=== PATIENT | male | born 1980 | race Caucasian/White ===

== ENCOUNTER 2020-02-27 01:56 | Emergency (ER) | payer MEDICARE, SELFPAY ==
--- NOTE | 2020-02-27 | CT_ITS ---
EXAMINATION: NONCONTRAST HEAD CT NONCONTRAST MAXILLOFACIAL CT NONCONTRAST CERVICAL SPINE CT INDICATION INFORMATION: Fall hitting head. Facial swelling and pain. COMPARISON: 09/26/2013 TECHNIQUE: Separate noncontrast CT examinations of the head, maxillofacial bones, and cervical spine were performed. Coronal and sagittal images were created for each examination at the technologist workstation. This CT examination was performed using dose optimization techniques as appropriate, variously including the following: *Automated exposure control *Adjustment of mA and/or kV according to patient size (this includes techniques or standardized protocols for targeted exams where dose is matched to indication/reason for exam; i.e. extremities or head) *Use of iterative reconstruction technique DLP: 1396 mGy-cm FINDINGS: Head: There is no evidence of acute intracranial hemorrhage or territorial infarction. No abnormal mass effect or midline shift is seen. Rodriguez to white matter differentiation is well preserved. No extra-axial fluid collections are identified. No hydrocephalus. No significant volume loss. There is no abnormal attenuation within the brain parenchyma. No acute soft tissue abnormality. No calvarial fracture. The mastoid air cells are well aerated. Maxillofacial: There is prominent soft tissue swelling in the left periorbital region and overlying the left mandible. Associated gas in the soft tissues. Multilevel maxillofacial fractures are present. There is a displaced fracture of the left zygomatic arch. There is a comminuted fracture of the anterior wall of the left maxillary sinus. Fracture of the posterolateral wall of the left maxillary sinus at the zygomaticomaxillary articulation. There is disruption of the left zygomaticosphenoid suture and left zygomaticofrontal suture. There is a comminuted fracture of the left orbital floor with herniation of fat through the defect. No malposition or rounding of the inferior rectus muscle. There is gas within the left orbit. The lamina papyracea are intact. Pterygoid plates are intact. The mandible is intact. The nasal bone is intact. There is moderate opacification of the left maxillary sinus, likely with blood products. The remaining paranasal sinuses are well aerated. The uncinate process is normal bilaterally. The infundibula and middle meati are patent. The nasal septum deviates to the left. The mandibular heads are well-seated in the condylar fossa. The globes are intact, and there are no suspicious findings to suggest retrobulbar hemorrhage. Mild left exophthalmus. Cervical spine: There is anatomic alignment of the vertebral bodies and posterior elements. The atlantoaxial and atlantooccipital articulations are intact. Vertebral body heights and intervertebral disc spaces are maintained. No evidence of acute fracture. No prevertebral soft tissue swelling. Visualized portions of the lung apices are unremarkable. The thyroid gland is unremarkable. IMPRESSION: 1. Left zygomaticomaxillary complex fracture. Prominent overlying soft tissue swelling and soft tissue gas. 2. Left orbital floor fracture with fat herniation. No evidence of extraocular muscle entrapment. There is mild left globe exophthalmos. 3. No acute intracranial finding. 4. No acute fracture or malalignment of the cervical spine.
--- NOTE | 2020-02-27 03:02 | XR_ITS ---
EXAMINATION: XR ELBOW, LEFT CLINICAL INFORMATION: Fall COMPARISON: None TECHNIQUE: AP, lateral, and oblique views of the left elbow. FINDINGS: No fracture or dislocation. Alignment is anatomic. Joint spaces are maintained. No elbow joint effusion. The soft tissues are unremarkable. IMPRESSION: Normal left elbow.
[2020-02-27 03:08] VITALS: BP 137/82; PULSE 88; RESP 18; TEMP 36.7; O2SAT 99; BMI 26.6
--- NOTE | 2020-02-27 03:38 | PC.NURSE ---
Pt transferred from CT to room 6. Cervical collar applied by this RN. +Swelling/bruising to right eye/right cheek. Pt reports 10/10 pain to face. Pt also reporting pain to the left side of his lower back but states its chronic pain. Pt aware of plan to await CT results. Continue to monitor.
[2020-02-27 04:00] VITALS: BP 117/77; PULSE 81; RESP 22; O2SAT 97
--- NOTE | 2020-02-27 04:21 | ED.HEATRA ---
HPI - Head Injury General Chief complaint: Head Injury Stated complaint: FELL HEAD INJURY Time Seen by Provider: 02/27/20 04:18 History of Present Illness HPI Narrative: This is a 39-year-old male who states that he was walking down the stairs when he developed a spasm in his leg that caused him to pitch forward and when this happened he struck the left side of his face on the corner of the stair case and proceeded to fall down 3 stairs without any LOC. Otherwise patient is complaining of obvious pain to the left side of his face but denies any inability to see or focus or pain on movement of his eye. Related Data Allergies Allergy/AdvReac Type Severity Reaction Status Date / Time No Known Allergies Allergy Unverified 02/08/20 18:14 Review of Systems Review of Systems: Pertinent positives and negatives as stated in HPI 10 point review of systems is otherwise negative. [facility] Past Medical History Source: nursing notes reviewed Social History Social History Advance Directives: No Advance Directives Information Provided: No Physical Exam Vital Signs and I&O and Narrative: Vital Signs and I&O: Vital Signs Temp 98.1 F 02/27/20 03:08 Pulse 77 02/27/20 04:30 Resp 16 02/27/20 04:30 BP 113/72 02/27/20 04:30 Pulse Ox 97 02/27/20 04:30 Intake & Output 02/26/20 02/26/20 02/27/20 06:59 18:59 06:59 Weight 81.647 kg Body Mass Index 26.6 VITAL SIGNS: Reviewed. GENERAL: Well developed, well nourished, in no acute distress. HEAD: Normocephalic/atraumatic, Posterior oropharynx was without edema, erythema or exudate. EYES: PERRLA, Pupils, EOMI intact without pain, no nystagmus/pallor/icterus noted , OS: there is significant ecchymosis to the periorbital area, but EOMI is intact and no obvious exophthalmos and pupil is reactive. EARS: Ext canals without abnormality, TMs non-bulging and non-erythematous , no hemotympanum NOSE: Nares patent bilateral OROPHARYNX: no oral lesions noted, posterior pharynx clear and non-erythematous without noted tonsillar enlargement/erythema/exudates, no tongue or oral lesions NECK: Supple, no adenopathy LUNGS: Normal breath sounds. No adventitious sounds or accessory muscle use. SpO2<> CARDIOVASCULAR: Regular rate and rhythm without noted murmurs, no JVD or lower extremity edema. ABDOMEN: Soft, non-tender, non-distended with bowel sounds. No rigidity. No guarding. No palpable masses or hernias noted MUSCULOSKELETAL: No tenderness, deformities, or effusions noted on gross inspection. EXTREMITIES: No cyanosis, clubbing or edema. SKIN: Inspection of the skin reveals no rashes, ulcerations, jaundice, pallor, or petechiae. NEUROLOGIC: Alert and oriented x 3. Strength and sensation to light touch were grossly intact x 4. Course Course Course Narrative: This is a 39-year-old male with history and clinical presentation consistent with traumatic fall and on review of imaging has complex fractures of the left orbit without reports posterior ocular hematoma and no evidence of entrapment on clinical exam or on radiologic findings. On review of cervical spine it is negative for any acute fractures and C-collar was cleared, review of head CT is otherwise negative for any evidence of intracranial bleeding.. This case was discussed with the trauma team at [facility], Dr. Cazares, who is the accepting physician for further workup of this patient's injuries. Patient did receive pain medication as well as tetanus shot. Discharge Plan Discharge Clinical Impression: Orbital floor fracture Qualifiers: Encounter type: initial encounter Fracture type: closed Laterality: left Qualified Code(s): S02.32XA - Fracture of orbital floor, left side, initial encounter for closed fracture Patient Disposition: [facility] Instructions: Facial Fracture (ED)
[2020-02-27] MEDS: Acetaminophen 325 MG TABLET 975 MG PO (04:24)
[2020-02-27] MEDS: Ketorolac Tromethamine 15 MG/ML VIAL IV (04:24)
[2020-02-27 04:30] VITALS: BP 113/72; PULSE 77; RESP 16; O2SAT 97
--- NOTE | 2020-02-27 04:30 | PC.NURSE ---
Pt medicated per [facility]AR. Pt aware of plan to transfer to [facility]. VSS.
--- NOTE | 2020-02-27 04:50 | PC.NURSE ---
report given to portia lovelace at [facility] trauma er. action here to take patient
== END 2020-02-27 05:13 | disposition short-term general hospital (02) ==
PROVIDERS: Emergency Provider Student in an Organized Health Care Education/Training Program
DX: S02.32XA Fracture of orbital floor, left side, initial encounter for closed fracture (principal); S09.90XA Unspecified injury of head, initial encounter; W10.9XXA Fall (on) (from) unspecified stairs and steps, initial encounter; Y93.01 Activity, walking, marching and hiking; Y92.009 Unspecified place in unspecified non-institutional (private) residence as the place of occurrence of the external cause
CPT/HCPCS: 70450; 70486; 72125; 73080; 90471; 90715; 96374; 99283; 99285; J1885

== ENCOUNTER 2020-06-26 16:48 | Outpatient (REF) | payer MEDICARE, MEDICAID, SELFPAY | END 2020-06-26 16:49 | disposition home or self-care (01) | LOC: HO.LAB 16:48 | PROVIDERS: Visit Provider Internal Medicine | DX: Z20.822 Contact with and (suspected) exposure to COVID-19 (principal) | CPT/HCPCS: 36415; C9803; U0003; U0005 ==

== ENCOUNTER 2023-02-12 03:21 | Emergency (ER) | payer OTHER, MEDICAID, SELFPAY ==
--- NOTE | 2023-02-12 | ECG_ITS ---
Test Reason : CHEST PAIN Blood Pressure : / mmHG Vent. Rate : 084 BPM Atrial Rate : 084 BPM P-R Int : 194 ms QRS Dur : 102 ms QT Int : 374 ms P-R-T Axes : 069 -39 042 degrees QTc Int : 441 ms Normal sinus rhythm Left axis deviation Abnormal ECG When compared with ECG of 15-MAR-2012 13:02, No significant change was found Referred By: Generic ED Physician Electronically Signed By:ALMA JOHNSTON
--- NOTE | ~2023-02-12 | XR_ITS ---
EXAMINATION: XR CHEST CLINICAL INFORMATION: Chest tightness COMPARISON: None available. TECHNIQUE: Frontal view of the chest was obtained. FINDINGS: The lungs are clear with no focal consolidation. No evidence of pneumothorax, pulmonary edema, or pleural effusions. The cardiomediastinal silhouette is unremarkable. No acute osseous findings. XR/XR chest 1V IMPRESSION: No acute cardiopulmonary findings.
[2023-02-12 03:27] VITALS: BMI 23.6
[2023-02-12 03:34] VITALS: BP 165/101; PULSE 96; RESP 23; TEMP 36.6; O2SAT 98
[2023-02-12 03:48] LABS: MANUAL DIFF FLAG NO
[2023-02-12 03:49] LABS: Basophils Percent Auto 0.2 % (0-2); Eosinophils Absolute Auto 0.1 X10*3/uL (0.0-0.4); Hematocrit 43.9 % (42.0-52.0); Hemoglobin 14.5 g/dl (14.0-18.0); Imm Gran Abs Auto 0.01 X10*3/uL (0.00-0.03); Imm Gran Pct Auto 0.2 % (0.0-0.4); Lymphocytes Absolute Auto 1.9 X10*3/uL (1.2-4.9); Lymphocytes Percent Auto 32.1 % (20-40); Mean Corpuscular Hemoglobin 30.9 pg (27.0-33.0); Mean Corpuscular Volume 93.4 fL (80.0-98.0); Mean Platelet Volume 10.4 fL (9.4-12.4); Monocytes Absolute Auto 0.4 X10*3/uL (0.1-1.2); Monocytes Percent Auto 7.4 % (2-11); Neutrophils Absolute Auto 3.5 x10*3/uL (2.0-8.3); Neutrophils Percent Auto 59.1 % (45-73); Platelet Count 188 X10*3/uL (160-400); Red Cell Distribution Width 12.1 % (11.0-16.0)
--- NOTE | 2023-02-12 03:59 | PC.NURSE ---
PT REPORT TOOK A COVID TEST AT HOME YESTERDAY AND CAME BACK POSITIVE
[2023-02-12 04:10] LABS: Alanine Aminotransferase 18 U/L (0-40); Albumin Level 4.7 g/dL (3.5-5.0); Alkaline Phosphatase 52 U/L (39-117); Anion Gap 16 (12-20); Aspartate Amino Transferase 22 U/L (5-37); Bilirubin Total 0.8 mg/dL (0.0-1.0); Blood Urea Nitrogen 14 mg/dL (9-16); Calcium 9.2 mg/dL (8.4-10.2); Carbon Dioxide 27 mmol/L (22-29); Chloride 101 mmol/L (96-108); Creatinine Clr Calc Pharmacy 90.8; Estimated Glomerular Filt Rate > 60; Glucose Random 175 mg/dL (60-115); Magnesium 2.2 mg/dL (1.6-2.6); Potassium 3.5 mmol/L (3.3-5.1); Sodium 140 mmol/L (135-145); Total Protein 8.5 g/dL (6.5-8.0)
--- NOTE | 2023-02-12 04:17 | ED.CHESTPAIN ---
HPI - Chest Pain General Chief Complaint: Chest Pain Stated Complaint: Chest pain Time Seen by Provider: 02/12/23 04:17 Source: patient Mode of arrival: ambulatory Limitations: no limitations History of Present Illness HPI narrative: Patient with no known coronary disease no history of hypertension or diabetes nonsmoker no cocaine use was sleeping woke up with palpitation an hour prior to arrive purplish lasted only for few minutes patient chest pain that started from the head to the leg feels sharp pain no paresthesia no shortness of breath. Patient was very anxious on arrival Related Data Allergies Allergy/AdvReac Type Severity Reaction Status Date / Time No Known Allergies Allergy Unverified 02/08/20 18:14 Review of Systems Review of Systems: Yes all other systems are reviewed and are negative [facility] Social History Social History Alcohol intake: unknown Smoked in Last 30 Days: No Use of substances other than those prescribed or required for medical reasons: Yes Substance Use Type: Marijuana Advance Directives: No Advance Directives Information Provided: Yes Physical Exam Vital Signs: Vital Signs: Last Vital Signs Temp 98.3 F 02/12/23 04:48 Pulse 72 02/12/23 05:46 Resp 12 02/12/23 05:46 BP 147/96 H 02/12/23 05:46 Pulse Ox 96 02/12/23 05:46 O2 Del Method Room Air 02/12/23 05:46 BMI result Body Mass Index 23.6 Appearance: Alert. Oriented X3. No acute distress. Anxious Eyes: PERRLA, No Nystagmus ENT: Pharynx normal. Oral Mucosa moist Neck: Normal inspection. Neck supple. CVS: Normal heart rate and rhythm. Pulses normal. Respiratory: No respiratory distress. Equal air entry bilateral, no wheezing/rales/rhonchi left chest wall tenderness Abdomen: Soft and nontender. Bowel sounds are present, no mass palpable, no CVA tenderness Skin: Skin warm and dry. Normal skin color. Normal skin turgor. Extremities: No lower extremity edema. No calf tenderness Neuro: Oriented X 3. No motor deficit. No sensory deficit.No cerebellar signs , cranial nerves II-XII intact Medications Administered Discontinued Medications Generic Name Dose Route Start Last Admin Trade Name Freq PRN Reason Stop Dose Admin Aspirin 162 mg 02/12/23 04:27 02/12/23 04:46 Aspirin 81 Mg Tab.Chew PO 02/12/23 04:28 162 mg ONCE ONE Administration Ketorolac Tromethamine 30 mg 02/12/23 04:27 02/12/23 04:46 Ketorolac Tromethamine 30 Mg/Ml Vial IVPUSH 02/12/23 04:28 30 mg ONCE ONE Administration Medical Decision Making Medical Decision Making [facility] Narrative: Patient with atypical chest pain with palpitation episodes with clinical increased anxiety 2 sets of cardiac enzymes negative D-dimer negative patient positive for COVID-19 is still insisting for MRI of the heart to rule out heart problem clinically seems very anxious unable to understand negative tests and D-dimer negative. Patient advised to follow with manufacturer representative Differential Diagnosis Differential Diagnoses: The differential diagnosis associated with the presentation includes ACS/atypical chest pain/anxiety/PE Admission/Observation Consideration of admission/observation: Escalation of care including admission/observation considered Lab Data [facility] Lab Attestation statement: I reviewed the patient's lab results. 02/12/23 03:44 02/12/23 03:44 Labs: Lab Results 02/12/23 02/12/23 Range/Units 03:44 05:46 WBC 6.0 (4.8-10.8) X10*3/uL RBC 4.70 (4.60-5.80) X10*6/uL Hgb 14.5 (14.0-18.0) g/dl Hct 43.9 (42.0-52.0) % MCV 93.4 (80.0-98.0) fL MCH 30.9 (27.0-33.0) pg MCHC 33.0 (31.0-36.0) g/dl RDW 12.1 (11.0-16.0) % Plt Count 188 (160-400) X10*3/uL MPV 10.4 (9.4-12.4) fL Immature Gran % (Auto) 0.2 (0.0-0.4) % Neut % (Auto) 59.1 (45-73) % Lymph % (Auto) 32.1 (20-40) % [place] % (Auto) 7.4 (2-11) % Eos % (Auto) 1.0 (0-4) % Baso % (Auto) 0.2 (0-2) % Lymph # (Auto) 1.9 (1.2-4.9) X10*3/uL [place] # (Auto) 0.4 (0.1-1.2) X10*3/uL Eos # (Auto) 0.1 (0.0-0.4) X10*3/uL Baso # (Auto) 0.0 (0.0-0.2) X10*3/uL Abs Immat Gran (auto) 0.01 (0.00-0.03) X10*3/uL Absolute Neuts (auto) 3.5 (2.0-8.3) x10*3/uL Absolute Nucleated RBC 0.000 (0.0-0.012) X10*3/uL Nucleated RBC % (auto) 0.0 (0.0-0.2) /100WBC D-Dimer High Sensitivty < 150 NG/ML Sodium 140 (135-145) mmol/L Potassium 3.5 (3.3-5.1) mmol/L Chloride 101 (96-108) mmol/L Carbon Dioxide 27 (22-29) mmol/L Anion Gap 16 (12-20) BUN 14 (9-16) mg/dL Creatinine 1.07 (0.5-1.4) mg/dL Estim Creat Clear Calc 90.8 Estimated GFR > 60 Random Glucose 175 H (60-115) mg/dL Calcium 9.2 (8.4-10.2) mg/dL Magnesium 2.2 (1.6-2.6) mg/dL Total Bilirubin 0.8 (0.0-1.0) mg/dL AST 22 (5-37) U/L ALT 18 (0-40) U/L Alkaline Phosphatase 52 (39-117) U/L Troponin I High Sens < 2.7 < 2.7 (<3.5-35.0) ng/L Total Protein 8.5 H (6.5-8.0) g/dL Albumin 4.7 (3.5-5.0) g/dL Independent Interpretation I performed an independent interpretation of an: EKG Interpretation: Normal sinus rhythm heart rate 84 beats per min left axis deviation no acute ST T wave changes no acute ischemia Radiology Impression Discussion of test interpretation with radiology: I have reviewed the radiologist's reading. Discharge Plan Discharge Clinical Impression: Chest pain, COVID-19 Patient Disposition: Home, Self-Care Instructions: Chest Pain (ED), COVID-19 (Coronavirus Disease 2019) (ED) Additional Instructions: Your workup is negative for acute coronary event Follow-up with your PCP/manufacturer representative if pain continues for further management including stress test as needed Referrals: Merlin Larose MD [Physician] - 1 week
[2023-02-12 04:20] LABS: Troponin-I High Sensitivity < 2.7 ng/L (<3.5-35.0)
[2023-02-12] MEDS: Ketorolac Tromethamine 30 MG/ML VIAL IVPUSH (04:46)
[2023-02-12] MEDS: Aspirin 81 MG TAB.CHEW 162 MG PO (04:46)
[2023-02-12 04:48] VITALS: BP 125/90; PULSE 74; RESP 18; TEMP 36.8; O2SAT 96
[2023-02-12 05:46] VITALS: BP 147/96; PULSE 72; RESP 12; O2SAT 96
[2023-02-12 06:15] LABS: Troponin-I High Sensitivity < 2.7 ng/L (<3.5-35.0)
[2023-02-12 06:32] LABS: D Dimer High Sensitivity < 150 NG/ML
== END 2023-02-12 06:44 | disposition home or self-care (01) ==
PROVIDERS: Emergency Provider Internal Medicine
DX: U07.1 COVID-19 (principal); R07.89 Other chest pain; Z79.899 Other long term (current) drug therapy
CPT/HCPCS: 36415; 71045; 80053; 83735; 84484; 85025; 85379; 93005; 96374; 99284; 99285; J1885